=== PATIENT | male | born 1970 | race Caucasian/White ===

== ENCOUNTER 2016-05-06 13:52 | Outpatient (CLI) | payer OTHER | END 2016-05-06 13:53 | disposition home or self-care (01) | DX: G47.30 Sleep apnea, unspecified (principal); G47.8 Other sleep disorders; R06.83 Snoring; G47.10 Hypersomnia, unspecified ==

== ENCOUNTER 2016-06-26 21:52 | Outpatient (CLI) | payer OTHER | END 2016-06-26 21:53 | disposition home or self-care (01) | DX: G47.30 Sleep apnea, unspecified (principal) ==

== ENCOUNTER 2016-07-17 08:39 | Outpatient (CLI) | payer OTHER | END 2016-07-17 08:40 | disposition home or self-care (01) | DX: G47.10 Hypersomnia, unspecified (principal); R06.83 Snoring ==

== ENCOUNTER 2017-01-14 14:09 | Emergency (ER) | payer OTHER ==
[2017-01-14 14:16] VITALS: BP 146/97
--- NOTE | 2017-01-14 14:39 | ED Physician Documentation ---
PD HPI BACK PAIN - Stated complaint Stated Complaint: BACK PX - Chief complaint Chief Complaint: Back Pain - History obtained from History obtained from: Patient - History of Present Illness Timing - onset: How many days ago (3) Timing - duration: Days (3) Timing - details: Gradual onset, Still present Location: Lower, Right Quality: Pain, Spasm, Sharp, Similar to prior episodes Associated symptoms: Weakness, Numbness. No: Fever, Incontinent of urine, Unable to urinate, Hematuria, Incontinent of stool Improves with: Rest, Ice, Position, Meds Worsened by: Movement, Lifting Contributing factors: Other (The patient was sitting for an extended period of time on a plane) Similar symptoms before: Diagnosis (lumbar disc disease) Recently seen: Not recently seen - Additional information Additional information: 46-year-old male who is status post L5 lumbar discectomy has developed again symptoms in his right leg. He states that several days ago he was on a plane for an extended period of time when he got up he had a stiff back and the next morning he had more significant pain and has had increasing numbness to the right leg since that time. He is having some period of time where the leg is not working well and were he is dragging his foot. He has had this happen to him previously and had a discectomy done in 2008. He did have epidural steroid injections in 1997 that did help and lasted until 2008. Review of Systems Constitutional: denies: Fever, Chills Eyes: denies: Decreased vision Ears: denies: Ear pain Nose: denies: Congestion Throat: denies: Sore throat Cardiac: denies: Chest pain / pressure Respiratory: denies: Dyspnea, Cough GI: denies: Abdominal Pain, Nausea, Vomiting : denies: Dysuria, Frequency PD PAST MEDICAL HISTORY - Past Medical History Past Medical History: No - Past Surgical History Past Surgical History: Yes Ortho: Spine surgery - Present Medications Home Medications: Ambulatory Orders Medication Instructions Recorded Confirmed No Known Home Medications [No 01/14/17 01/14/17 Known Home Medications] - Allergies Allergies/Adverse Reactions: Allergies Allergy/AdvReac Type Severity Reaction Status Date / Time No Known Drug Allergies Allergy Verified 01/14/17 14:16 - Social History Does the pt smoke?: No Smoking Status: Never smoker Does the pt drink ETOH?: No Does the pt have substance abuse?: No - Immunizations Immunizations are current?: Yes - POLST Patient has POLST: No PD ED PE NORMAL - Vitals Vital signs reviewed: Yes (hypertensive) - General General: No acute distress, Well developed/nourished, Other (The patient is standing in the room and appears to be in mild pain ) - HEENT HEENT: Atraumatic, PERRL - Respiratory Respiratory: No respiratory distress - Back Back: No CVA TTP, No spinal TTP, Other (There is some paraspinous muscle tenderness to the lower lumbar spine on the right side. ) - Derm Derm: Normal color, Warm and dry, No rash - Extremities Extremities: No deformity, No edema - Neuro Neuro: No motor deficit, No sensory deficit - Psych Psych: Normal mood, Normal affect Results - Vitals Vitals: Vital Signs - 24 hr 01/14/17 14:12 Temperature 35.9 C L Heart Rate 88 Respiratory 15 Rate Blood Pressure 146/97 H O2 Saturation 97 Oxygen O2 Source Room air PD MEDICAL DECISION MAKING - ED course Complexity details: considered differential, d/w patient ED course: 46-year-old male with right-sided lumbar radiculopathy has some numbness in the right leg and some motor weakness. He is given decadron 10mg PO and he refuses pain medication. Departure - Departure Disposition: 01 Home, Self Care Clinical Impression: Sciatica Qualifiers: Laterality: right Qualified Code(s): M54.31 - Sciatica, right side Condition: Stable Instructions: ED Sciatica Follow-Up: MACHELLE RIDLEY MD [Primary Care Provider] -
[2017-01-14] MEDS: DEXAMETHASONE 10 MG/ML VIAL PO STA (14:46)
[2017-01-14] MEDS ORDERED: DEXAMETHASONE 10 MG/ML VIAL ONE (14:50)
== END 2017-01-14 14:51 | disposition home or self-care (01) ==
LOC: ED 14:09
DX: M54.31 Sciatica, right side (principal)
CPT/HCPCS: 99283

== ENCOUNTER 2017-03-06 12:28 | Outpatient (CLI) | payer OTHER ==
--- NOTE | 2017-03-06 16:12 | MRI Report ---
EXAM: MRI LUMBAR SPINE WITHOUT CONTRAST EXAM DATE: 03/06/2017 01:27 PM. CLINICAL HISTORY: Lumbar pain. Right leg radiculopathy and weakness. COMPARISON: 01/14/2008. TECHNIQUE: Multiplanar, multisequence T1-weighted and fluid-sensitive sequences of the lumbar spine f rom T12 to S1 without contrast. Other: None. FINDINGS: Spinal Cord: The conus terminates at L1. The conus medullaris and cauda equina are unremarkable. Alignment: No scoliosis or spondylolisthesis. Bone Marrow: Five [id number] lumbar vertebral bodies are assumed. No gross fractures or bone les ions. No bone marrow edema. Disk Levels/Facets: T11-T12: Anterior endplate spurring is present. T12-L1: Unremarkable. L1-L2: Unremarkable. L2-L3: Type 2 endplate change is present. The disk is desiccated with mild height loss. A mild repairer auto clocks ior disk protrusion results in mild to moderate spinal canal narrowing as before. L3-L4: The disk is desiccated. A broad-based posterior disk protrusion and mild facet hypertrophy cau se moderate spinal canal and minimal right foraminal narrowing as before. L4-L5: The disk is desiccated. A central posterior disk protrusion causes moderate spinal canal and m inimal bilateral foraminal narrowing. L5-S1: The disk is desiccated. A central posterior disk protrusion causes mild spinal canal and minim al bilateral foraminal narrowing. This is improved since the prior examination and there is no longer an extruded fragment in the right subarticular zone. Musculature: Normal. No edema or fatty atrophy. Other: The partially visualized retroperitoneum is unremarkable. IMPRESSION: 1. Mild to moderate spinal canal narrowing at L2-L3 due to disk protrusion. 2. Moderate spinal canal narrowing at L3-L4 due to disk and posterior element degenerative changes. 3. Moderate spinal canal narrowing at L4-L5 due to disk protrusion. 4. Mild spinal canal narrowing at L5-S1 due to disk protrusion. This is improved since the prior exam ination. Comment: The following findings are so common in adults without low back pain that while we report th eir presence, they must be interpreted with caution and in the context of the clinical situation. (Re mauricio Oviedo et al, Spine 2001) Prevalence of findings in patients without low back pain: Disk degeneration (any evidence): 92% Disk desiccation/T2 signal loss: 83% Disk height loss: 56% Disk bulge: 64% Disk protrusion: 32% Annular tear/high intensity zone: 38% [facility] Referring Provider Line: [phone] SITE ID: [id number]
== END 2017-03-06 12:29 | disposition home or self-care (01) ==
LOC: DI 12:28
PROVIDERS: ATTEND Radiology Diagnostic Radiology
DX: M51.26 Other intervertebral disc displacement, lumbar region (principal); M51.36 Other intervertebral disc degeneration, lumbar region; M47.896 Other spondylosis, lumbar region; M51.27 Other intervertebral disc displacement, lumbosacral region
CPT/HCPCS: 72148

== ENCOUNTER 2017-05-25 13:57 | Emergency (ER) | payer OTHER ==
[2017-05-25 14:21] VITALS: BP 152/86
[2017-05-25] MEDS ORDERED: HYDROcod/ACETAM 5/325 MG TABLET PO STA (15:30)
[2017-05-25] MEDS ORDERED: DEXAMETHASONE 10 MG/ML VIAL PO STA (15:30)
--- NOTE | 2017-05-25 15:34 | ED Physician Documentation ---
PD HPI BACK PAIN - Stated complaint Stated Complaint: BACK PX/R LEG NUMB - Chief complaint Chief Complaint: Ext Problem - History obtained from History obtained from: Patient, Family - History of Present Illness Timing - onset: Last night Timing - duration: Days (1) Timing - details: Abrupt onset, Still present Location: Lower, Right Quality: Pain, Spasm, Sharp, Similar to prior episodes Associated symptoms: Numbness, Other (reduced urine stream). No: Fever, Weakness, Incontinent of urine, Hematuria, Incontinent of stool Improves with: Rest Worsened by: Movement Contributing factors: Other (bent over yesterday when pain started) Similar symptoms before: Diagnosis (spinal stenosis with disc disease) Recently seen: Other - Additional information Additional information: 47-year-old male with a history of spinal stenosis and lumbar disc disease who is had a discectomy done previously has developed symptoms again of sciatica acutely with numbness on the right side. He had a simple and over last night and had some pain in his back and this morning awoke with the numbness in his right leg. He had a hard time sleeping last night secondary to the pain and he has been in pain all day. He has noticed a decreased stream in his urine but he is able to urinate and he has not had any fecal incontinence or constipation. He has an appointment to have surgery done on 23 June. Review of Systems Constitutional: denies: Fever Eyes: denies: Decreased vision Ears: denies: Ear pain Nose: denies: Congestion Throat: denies: Sore throat Cardiac: denies: Chest pain / pressure, Palpitations Respiratory: denies: Dyspnea, Cough GI: denies: Abdominal Pain, Nausea, Vomiting : denies: Dysuria, Frequency Musculoskeletal: reports: Back pain, Extremity pain. denies: Neck pain Neurologic: reports: Numbness. denies: Generalized weakness, Focal weakness PD PAST MEDICAL HISTORY - Past Medical History Past Medical History: Yes Musculoskeletal: Chronic back pain - Past Surgical History Past Surgical History: Yes Ortho: Spine surgery - Present Medications Home Medications: Ambulatory Orders Medication Instructions Recorded Confirmed Cyclobenzaprine [Flexeril] 10 mg PO TID PRN #20 tablet 05/25/17 Dexamethasone [Decadron] 4 mg PO DAILY #5 tablet 05/25/17 HYDROcod/ACETAM 5/325 [Holden 5/325] 1 - 2 ea PO Q6H PRN #15 tablet 05/25/17 Meloxicam [Mobic] 15 mg PO DAILY PRN 05/25/17 05/25/17 - Allergies Allergies/Adverse Reactions: Allergies Allergy/AdvReac Type Severity Reaction Status Date / Time No Known Drug Allergies Allergy Verified 01/14/17 14:16 - Social History Does the pt smoke?: No Smoking Status: Never smoker Does the pt drink ETOH?: No Does the pt have substance abuse?: No - Immunizations Immunizations are current?: Yes - POLST Patient has POLST: No PD ED PE NORMAL - Vitals Vital signs reviewed: Yes (hypertesive) - General General: Alert and oriented X 3, Well developed/nourished, Other (appears to be in pain with exhibit preparator tone and flat affect. ) - HEENT HEENT: Atraumatic, PERRL - Respiratory Respiratory: No respiratory distress - Back Back: No CVA TTP, No spinal TTP, Other (There is tenderness to the right lower paraspinous muscles. ) - Derm Derm: Normal color, Warm and dry, No rash - Extremities Extremities: No deformity, No edema - Neuro Neuro: Alert and oriented X 3, faucets assembler 2-12 intact, No motor deficit, Normal speech , Other (There is no weakness to dorsiflexion of the great toe on the right. There is subjective numbness to the lateral foot and heal. ) Eye Opening: Spontaneous Motor: Obeys Commands Verbal: Oriented GCS Score: 15 - Psych Psych: Normal mood Results - Vitals Vitals: Vital Signs - 24 hr 05/25/17 14:19 Temperature 36.0 C L Heart Rate 80 Respiratory 16 Rate Blood Pressure 152/86 H O2 Saturation 1 L Oxygen O2 Source Room air PD MEDICAL DECISION MAKING - ED course Complexity details: reviewed old records, considered differential, d/w patient, d/w family ED course: 47 y/o male with lumbar disc disease has acute symptoms and he is given a dose of decadron and we will provide a short course as well as some pain medication and muscle relaxant. Departure - Departure Disposition: 01 Home, Self Care Clinical Impression: Sciatica Qualifiers: Laterality: right Qualified Code(s): M54.31 - Sciatica, right side Instructions: ED Sciatica Follow-Up: MACHELLE RIDLEY MD [Primary Care Provider] - Prescriptions: Cyclobenzaprine [Flexeril] 10 mg PO TID PRN #20 tablet PRN Reason: Spasms Dexamethasone [Decadron] 4 mg PO DAILY #5 tablet HYDROcod/ACETAM 5/325 [Holden 5/325] 1 - 2 ea PO Q6H PRN #15 tablet PRN Reason: Pain
[2017-05-25] MEDS ORDERED: CHERRY SYRUP 10 ML UDC PO ONE (15:43)
== END 2017-05-25 15:44 | disposition home or self-care (01) ==
LOC: ED 13:57
DX: M54.31 Sciatica, right side (principal); G89.29 Other chronic pain
CPT/HCPCS: 99283; A9270

== ENCOUNTER 2020-12-24 17:31 | Emergency (ER) | payer OTHER ==
[2020-12-24 19:14] LABS: BASOPHILS # (AUTO) 0.1 10^3/uL (0.0-0.1); BASOPHILS % (AUTO) 0.7 %; EOSINOPHILS # (AUTO) 0.3 10^3/uL (0.0-0.7); HGB - HEMOGLOBIN 15.8 g/dL (14.0-18.0); LYMPHOCYTES # (AUTO) 3.3 10^3/uL (1.5-3.5); LYMPHOCYTES % (AUTO) 29.4 %; MEAN CORPUSCULAR HEMOGLOBIN 30.2 pg (27.0-31.0); MEAN CORPUSCULAR HGB CONC 32.9 g/dL (32.0-36.0); MEAN CORPUSCULAR VOLUME 91.8 fL (80.0-94.0); MEAN PLATELET VOLUME 10.9 fL (7.4-11.4); MONOCYTES # (AUTO) 0.8 10^3/uL (0.0-1.0); MONOCYTES % (AUTO) 7.1 %; NEUTROPHILS # (AUTO) 6.6 10^3/uL (1.5-6.6); NEUTROPHILS % (AUTO) 59.3 %; PLT - PLATELET COUNT 249 10^3/uL (130-450); RED BLOOD COUNT 5.23 10^6/uL (4.70-6.10); RED CELL DISTRIBUTION WIDTH 14.5 % (12.0-15.0); WHITE BLOOD COUNT 11.2 x10^3/uL (4.8-10.8)
[2020-12-24 19:26] LABS: ALBUMIN 4.6 g/dL (3.2-5.5); ALBUMIN/GLOBULIN RATIO 1.3 (1.0-2.2); BILIRUBIN,TOTAL 0.5 mg/dL (0.2-1.0); CALCIUM 9.8 mg/dL (8.5-10.3); CREATININE 1.2 mg/dL (0.6-1.2); TOTAL PROTEIN 8.1 g/dL (6.7-8.2)
[2020-12-24] MEDS ORDERED: SODIUM CHLORIDE 0.9% 1,000 ML IV STA (20:17)
[2020-12-24] MEDS ORDERED: ONDANSETRON 4 MG/2 ML VIAL IVP STA (20:17)
[2020-12-24 20:29] LABS: BILIRUBIN,URINE NEGATIVE (NEGATIVE); GLUCOSE, URINE (UA) NEGATIVE (NEGATIVE); KETONES,URINE (UA) NEGATIVE (NEGATIVE); LEUKOCYTE ESTERASE, URINE NEGATIVE (NEGATIVE); NITRITE,URINE NEGATIVE (NEGATIVE); OCCULT BLOOD,URINE NEGATIVE (NEGATIVE); PROTEIN,URINE NEGATIVE (NEGATIVE); UROBILINOGEN,URINE 0.2 (NORMAL) E.U./dL (NORMAL)
[2020-12-24 20:30] LABS: CLARITY,URINE CLEAR (CLEAR)
--- NOTE | 2020-12-24 21:15 | ED Physician Documentation ---
History of Present Illness - Stated complaint Stated Complaint: V/N,HEADACHE,DIZZY - Chief complaint Chief Complaint: General - History obtained from History obtained from: Patient - History of Present Illness Timing: How many days ago (4) Pain level max: 4 Pain level now: 3 - Additonal information Additional information: Patient is a 50-year-old male who states he has had a intermittent left-sided headache along with nausea, vomiting and diarrhea for the past 4 days. Nothing seems to make it better or worse. He states that he received his first Covid vaccination about 12 days ago, [employer]. No fevers. No cough. He states he has intermittent crampy abdominal pain prior to vomiting or diarrhea. No recent travel. No recent antibiotics. Review of Systems Constitutional: denies: Fever, Chills GI: denies: Vomiting, Diarrhea Skin: denies: Rash Musculoskeletal: denies: Neck pain, Back pain Neurologic: denies: Headache PD PAST MEDICAL HISTORY - Past Medical History Past Medical History: Yes Musculoskeletal: Chronic back pain - Past Surgical History Past Surgical History: Yes Ortho: Spine surgery - Present Medications Home Medications: Ambulatory Orders Medication Instructions Recorded Confirmed Ondansetron Odt [Zofran] 4 mg TL Q6H PRN #10 tablet 12/24/20 - Allergies Allergies/Adverse Reactions: Allergies Allergy/AdvReac Type Severity Reaction Status Date / Time No Known Drug Allergies Allergy Verified 12/24/20 17:35 - Living Situation Living Situation: reports: With family Living Arrangement: reports: At home - Social History Does the pt smoke?: No Smoking Status: Never smoker Does the pt drink ETOH?: No Does the pt have substance abuse?: No - Immunizations Immunizations are current?: Yes - POLST Patient has POLST: No PD ED PE NORMAL - Vitals Vital signs reviewed: Yes - General General: Alert and oriented X 3, No acute distress - HEENT HEENT: Atraumatic, PERRL, EOMI, Moist mucous membranes, Other (no temporal artery tenderness) - Neck Neck: Supple, no meningeal sign - Cardiac Cardiac: RRR - Respiratory Respiratory: No respiratory distress, Clear bilaterally - Abdomen Abdomen: Soft, Non tender, Non distended - Back Back: No CVA TTP, No spinal TTP - Derm Derm: Warm and dry - Extremities Extremities: No edema, No calf tenderness / cord - Neuro Neuro: Alert and oriented X 3, radiology administrator 2-12 intact, No motor deficit, No sensory deficit, Normal speech Results - Vitals Vitals: Vital Signs - 24 hr 12/24/20 12/24/20 12/24/20 17:35 19:41 21:00 Temperature 36.5 C Heart Rate 82 70 71 Respiratory 16 20 20 Rate Blood Pressure 160/90 H 151/87 H 122/74 O2 Saturation 97 98 97 12/24/20 21:45 Temperature 36.8 C Heart Rate 72 Respiratory 16 Rate Blood Pressure 123/74 O2 Saturation 100 Oxygen O2 Source Room air - Labs Labs: Laboratory Tests 12/24/20 12/24/20 12/24/20 19:08 19:08 20:20 WBC 11.2 H RBC 5.23 Hgb 15.8 Hct 48.0 MCV 91.8 MCH 30.2 MCHC 32.9 RDW 14.5 Plt Count 249 MPV 10.9 Neut # (Auto) 6.6 Lymph # (Auto) 3.3 [place] # (Auto) 0.8 Eos # (Auto) 0.3 Baso # (Auto) 0.1 Absolute Nucleated RBC 0.00 Nucleated RBC % 0.0 Sodium 141 Potassium 4.0 Chloride 105 Carbon Dioxide 28 Anion Gap 8.0 BUN 21 H Creatinine 1.2 Estimated GFR (MDRD) 65 L Glucose 101 H Calcium 9.8 Total Bilirubin 0.5 AST 25 ALT 54 Alkaline Phosphatase 66 Total Protein 8.1 Albumin 4.6 Globulin 3.5 Albumin/Globulin Ratio 1.3 Lipase 26 Urine Color YELLOW Urine Clarity CLEAR Urine pH 6.0 Ur Specific [place] >=1.030 H Urine Protein NEGATIVE Urine Glucose (UA) NEGATIVE Urine Ketones NEGATIVE Urine Occult Blood NEGATIVE Urine Nitrite NEGATIVE Urine Bilirubin NEGATIVE Urine Urobilinogen 0.2 (NORMAL) Ur Leukocyte Esterase NEGATIVE Ur Microscopic Review NOT INDICATED Urine Culture Comments NOT INDICATED PD MEDICAL DECISION MAKING - ED course Complexity details: reviewed results, re-evaluated patient, considered genesis wright, d/w patient ED course: Symptoms resolved with IV fluids and Zofran. Feels much better. Appears to be a viral syndrome. Similar patients with similar symptoms previously. We will have him follow-up with his doctor for further care. Abdomen is soft, nontender nondistended on serial exam. Tolerating p.o. without difficulty. Patient counseled regarding signs and symptoms for which I believe and urgent re- evaluation would be necessary. Patient with good understanding of and agreement to plan and is comfortable going home at this time This document was made in part using voice recognition software. While efforts are made to proofread this document, sound alike and grammatical errors may occur. Departure - Departure Disposition: 01 Home, Self Care Clinical Impression: Viral syndrome Condition: Good Instructions: ED Viral Syndrome Follow-Up: Provider,Other [Primary Care Provider] - Within 1 week Prescriptions: Ondansetron Odt [Zofran] 4 mg TL Q6H PRN #10 tablet PRN Reason: Nausea / Vomiting Comments: Your prescription were sent to [facility] in [place]. This is likely a viral syndrome. Drink plenty of fluids and rest. Return if you worsen. Follow-up with your doctor for further care. Discharge Date/Time: 12/24/20 21:48
[2020-12-24 21:48] VITALS: BP 123/74
== END 2020-12-24 21:48 | disposition home or self-care (01) ==
LOC: ED 17:31
DX: B34.9 Viral infection, unspecified (principal); Z20.822 Contact with and (suspected) exposure to COVID-19
CPT/HCPCS: 36415; 80053; 81001; 81003; 83690; 85025; 87086; 96361; 96374; 99283

== ENCOUNTER 2022-04-24 09:19 | Emergency (ER) | payer OTHER ==
[2022-04-24] MEDS ORDERED: KETOROLAC 30 MG/ML VIAL IM STA (13:16)
--- NOTE | 2022-04-24 13:17 | ED Physician Documentation ---
History of Present Illness - Stated complaint Stated Complaint: BACK PX/LEFT LEG NUMB - Chief complaint Chief Complaint: Back Pain - Additonal information Additional information: 52-year-old male presents to the emergency department for evaluation of acute on chronic left low back pain with radiation down the left leg. He has a history of significant degenerative disc disease. He underwent a laminectomy, discectomy and spinal fusion in 2019. He is followed by back surgeon Dr. Morales through [facility]. He reports that he typically has a flare of back pain about every 6 months. Yesterday he was turning in bed when he felt a sudden sharp pain. Since then he has had numbness below the level of his knee which she reports as a new symptom. He has had no saddle anesthesia, loss of bowel or bladder function. He has a normal gait. Did take Aleve without relief of symptoms. [facility]. Denies a history of diabetes, cancer. No injection drug use. No fevers recent falls. Patient is a reliable historian Review of Systems Constitutional: reports: Reviewed and negative Throat: reports: Reviewed and negative Cardiac: reports: Reviewed and negative Respiratory: reports: Reviewed and negative GI: reports: Reviewed and negative Musculoskeletal: reports: Back pain, Extremity pain PD PAST MEDICAL HISTORY - Past Medical History Musculoskeletal: Chronic back pain - Past Surgical History Past Surgical History: Yes Ortho: Spine surgery - Present Medications Home Medications: Ambulatory Orders Medication Instructions Recorded Confirmed Ondansetron Odt [Zofran] 4 mg TL Q6H PRN #10 tablet 12/24/20 methylPREDNISolone [Medrol] 4 mg PO DAILY #1 tab 04/24/22 oxyCODONE [Roxicodone] 5 mg PO BID PRN #10 tablet 04/24/22 - Allergies Allergies/Adverse Reactions: Allergies Allergy/AdvReac Type Severity Reaction Status Date / Time No Known Drug Allergies Allergy Verified 04/24/22 09:33 - Social History Does the pt smoke?: No Smoking Status: Never smoker Does the pt drink ETOH?: No Does the pt have substance abuse?: No - Immunizations Immunizations are current?: Yes - POLST Patient has POLST: No PD ED PE NORMAL - General General: Alert and oriented X 3, No acute distress, Well developed/nourished - HEENT HEENT: Atraumatic - Cardiac Cardiac: RRR, No murmur - Respiratory Respiratory: No respiratory distress, Clear bilaterally - Back Back: No CVA TTP, No spinal TTP (No midline lower lumbar spinous tenderness elicited. There is some mild tenderness elicited at the left SI joint. Normal gait. Motor strength 5 of 5 bilateral lower extremities. Patient has difficulty standing on his tiptoes bilaterally but it is improved on both heels. ), Other (Subjective numbness left lower lateral leg. Patient endorses chronic numbness of the right foot and lateral leg after surgery in 2019) - Derm Derm: Normal color, Warm and dry, No rash - Extremities Extremities: No deformity - Neuro Neuro: Alert and oriented X 3, assistant manager/embalmer 2-12 intact Eye Opening: Spontaneous Motor: Obeys Commands Verbal: Oriented GCS Score: 15 Results - Vitals Vitals: Vital Signs - 24 hr 04/24/22 09:28 Temperature 36.1 C L Heart Rate 63 Respiratory 16 Rate Blood Pressure 138/87 H O2 Saturation 99 Oxygen O2 Source Room air PD Medical Decision Making - ED course Complexity details: reviewed old records, considered differential, d/w patient ED course: 52-year-old male presents emergency department for evaluation of acute on chronic low back pain. He does have a history of spinal fusion, discectomy and laminectomy in 2019. He reports that he has developed new numbness below the level of the knee since turning in bed yesterday. He was advised to come to the ER from the [facility]. He has no saddle anesthesia loss of bowel or bladder coordination. He has a normal gait. I believe that this gentleman likely has a flare of sciatica given the distribution of pain from the SI joint down the left leg with new numbness. An MRI is not indicated today as clinically I am not suspicious for an epidural abscess. Patient has found benefit from steroids in the past which we will restart today. I did give him an injection of Toradol here in the ER with some moderate relief of symptoms. A very limited prescription of oxycodone is being sent to the pharmacy for severe back pain only. Patient was aware we would be unable to refill this for any reason. I am prescribing a short course of short-acting opioid pain medication for this patient. I have reviewed the patients TRAINMASTER and no concerning findings were noted. I have discussed that the opioids are for short term therapy only, and will not be refilled from the ED. Emergent and worrisome return precautions discussed Departure - Departure Disposition: Home, Self Care Clinical Impression: Left-sided low back pain with sciatica Qualifiers: Chronicity: unspecified Sciatica laterality: sciatica of left side Qualified Code(s): M54.42 - Lumbago with sciatica, left side Condition: Stable Record reviewed to determine appropriate education?: Yes Instructions: ED Back Care Tips Prescriptions: methylPREDNISolone [Medrol] 4 mg PO DAILY #1 tab oxyCODONE [Roxicodone] 5 mg PO BID PRN #10 tablet PRN Reason: Pain Comments: Alok reveles came to the emergency department today because you have had a flare of your back pain causing some numbness below your left knee. It is important that you discuss this ED visit with your back surgeon as soon as possible. They may elect to refer you to physical therapy or reconsider doing an outpatient MRI, though that is not indicated today during this ED visit. In order to help manage her symptoms I would like to start you on a short course of oral steroids which you have found helpful in the past. While taking the steroids do not take other NSAID medication such as Aleve, Motrin, ibuprofen or Advil. Though you can resume taking those once you are done with the steroids. I am prescribing a very small amount of pain medication to help with severe symptoms. We cannot refill this medication and anyway even if you have been unable to arrange follow-up with your back surgeon. If you find that you are developing worsening symptoms, lose sensation in your genital area or lose control of your bowel or bladder function you do need to return immediately to the ER. I am prescribing a short course of narcotic pain medication for you. These are p otentially dangerous and addictive medications that should be used carefully. These medications may constipate you. Take an ijtw-voz-pknepcc stool softener (docusate) twice daily with plenty of water while taking these medications. If you go 24 hours without a bowel movement, take [id number] miralax, per package instructions. Do not drink or drive while taking these medications. If you received narcotic or sedating medications while in the emergency department, do not drive for 24 hours. Store this medication in a safe, secure place and out of reach of children. It is a violation of federal law to give or sell this medication to another person or to use in a manner other than prescribed. The ED will not refill narcotic prescriptions, including prescriptions lost or stolen. To dispose of unwanted medications: 1. [facility] at [address] in [place] has a medication drop box. They accept prescription medications (in pill form) Friday through Friday 9:00 a.m. to 5:00 p.m. 2. [facility] accepts prescription medications (in pill form only) for disposal year round. Call for more information. 3. Contact the [facility] for the next [facility] sponsored prescription drug collection event. , [phone], or [phone]; Note that many narcotic pain relievers also contain Tylenol/acetaminophen. Please ensure that your total dose of acetaminophen from all sources does not exceed 3 g (3000 mg) per day.
[2022-04-24 13:38] VITALS: BP 167/99
== END 2022-04-24 13:38 | disposition home or self-care (01) ==
LOC: ED 09:19
DX: M54.42 Lumbago with sciatica, left side (principal)
CPT/HCPCS: 96372; 99283; 99284